=== PATIENT | female | born 1975 | race African-American/Black ===

== ENCOUNTER → 2018-11-13 | Emergency (ER) | payer MEDICARE ==
[2018-11-13 12:17] LABS: Anion Gap 17 mmol/L (10-20); BHCG - Serum Negative (NEGATIVE); BUN (Urea Nitrogen) 32 mg/dL (7.0-18.7); Calc. Creatinine Clearance 0 mL/min (70-130); Calcium 11.1 mg/dL (7.8-10.44); Carbon Dioxide 34 mmol/L (22-29); Chloride 93 mmol/L (98-107); Estimated GFR-MDRD 6; Glucose 95 mg/dL (70-105); Potassium 5.2 mmol/L (3.5-5.1); Pregs Control Bar Appear? YES (CONTROL BAR); Sodium 139 mmol/L (136-145)
== END ==
LOC: NAV ERS 11:08
DX: R10.9 Unspecified abdominal pain (principal); I12.0 Hypertensive chronic kidney disease with stage 5 chronic kidney disease or end stage renal disease; N18.6 End stage renal disease; Z79.899 Other long term (current) drug therapy
CPT/HCPCS: 80048; 84703; 99284